=== PATIENT | female | born 1995 | race African-American/Black ===

== ENCOUNTER 2017-01-15 09:55 | Emergency (ER) | payer OTHER ==
[~2017-01-15] VITALS: Ht 160 cm; Wt 63.5 kg
[~2017-01-15 09:55] MED LIST: IBUP200T77 PO; ONDA4TAB10 SL; PRED50TA PO
[2017-01-15 12:00] VITALS: BP 116/61
[2017-01-15] MEDS ORDERED: ACET-704 PO (12:23)
--- NOTE | 2017-01-15 12:24 | PHYS DOC ---
Past Medical History Past Medical History: Other Additional Past Medical Histor: ulcers Past Surgical History: No Surgical History Additional Information: Nonsmoker Alcohol Use: Occasionally Drug Use: None Adult General Chief Complaint Chief Complaint: HAND PROBLEM HPI HPI Patient is a 21 year old female who presents with blisters on her hands and feet for 2 days. She also reports a few lesions on the right thigh and the right forearm. She denies any lesions in her mouth or fevers. The patient works at a daycare center. She had similar blisters in August of last year and was diagnosed with hand, foot, mouth disease. Her PCP is Dr. Sultana Garcia. She has an appointment with a chronometer assembler on Wednesday next week. Review of Systems Review of Systems Constitutional: Denies fever or chills. [] Eyes: Denies change in visual acuity, redness, or eye pain. [] HENT: Denies ear pain, nasal congestion or sore throat. Denies mouth sores. Musculoskeletal: Denies back pain or joint pain. [] Integument: Reports blisters on the hands, feet, right thigh, and right forearm. Allergies Allergies Allergies Coded Allergies Type Severity Reaction Last Updated Verified No Known Drug Allergies 10/03/16 No Physical Exam Physical Exam Constitutional: Well developed, well nourished, no acute distress, non-toxic appearance. [] HENT: Normocephalic, atraumatic, oropharynx moist. There is a subcentimeter erythematous blister on the left side of the hard palate. The patient denies any pain associated with this. Eyes: PERRLA, EOMI, conjunctiva normal, no discharge. [] Neck: Normal range of motion, no tenderness, supple, no stridor. [] Skin: Warm, dry, no erythema, no rash. There are blisters scattered on bilateral palms, bilateral soles of the feet, right thigh, and right forearm. Extremities: There is tenderness associated with the blisters only, ROM intact, no edema. Distal pulses equal bilaterally. [] Neurologic: Alert and oriented X 3, normal motor function, normal sensory function, no focal deficits noted. [] Psychologic: Affect normal, judgement normal, mood normal. [] EKG EKG [] Radiology/Procedures Radiology/Procedures [] Course & Med Decision Making Course & Med Decision Making Pertinent Labs and Imaging studies reviewed. (See chart for details) [] Dragon Disclaimer Dragon Disclaimer This electronic medical record was generated, in whole or in part, using a voice recognition dictation system. Departure Departure Impression: Primary Impression: Hand, foot, and mouth disease Disposition: HOME, SELF-CARE Condition: STABLE Referrals: NON,STAFF (PCP) Patient Instructions: Hand, Foot, and Mouth Disease, [id number] Additional Instructions: Your blisters appear to be due to hand, foot, mouth disease. This is a viral illness. Please take the prescribed pain medication as directed. Do not drive or operate heavy machinery while taking pain medication. Please follow-up with your chronometer assembler as previously scheduled. Return to the emergency department if you have any new or concerning symptoms. Scripts Acetaminophen With Codeine (Tylenol With Codeine #3 Tablet)1 Each Tablet1 Tab PO PRN Q6HRS PRN PAIN #20 TAB Prov:RAIMUNDO RODRIGUEZ 01/15/17 RAIMUNDO RODRIGUEZ Jan 15, 2017 12:24
== END 2017-01-15 12:50 | disposition home or self-care (01) ==
LOC: ER 09:55
DX: B08.4 Enteroviral vesicular stomatitis with exanthem (principal)
CPT/HCPCS: 99283

== ENCOUNTER 2019-09-06 12:02 | Emergency (ER) | payer BC, OTHER ==
[~2019-09-06] VITALS: Ht 160 cm; Wt 63.5 kg
[~2019-09-06 12:02] MED LIST changes: +ACET-704 PO
[2019-09-06 12:22] VITALS: BP 130/58
--- NOTE | 2019-09-06 12:58 | PHYS DOC ---
Past Medical History Past Medical History: Other Additional Past Medical Histor: ulcers Past Surgical History: No Surgical History Alcohol Use: Occasionally Drug Use: None Adult General Chief Complaint Chief Complaint: [facility] HPI Patient is a 23 year old AA female who presents to the emergency department with complaints of lacerations to her second and third digit of her left hand after a wine glass broke this morning. Patient states she went to urgent care and they cleaned out the cuts however the wait was 2 hours so she decided to leave. Patient states her last tetanus shot was approximately one year ago. She denies any numbness, tingling, weakness or decreased range of motion of the affected fingers. She currently complains of a throbbing pain that she rates a 6 out of 10 on pain scale she alleviating factors. States that the pain increases with movement of her fingers or touch. All other ROS is neg unless otherwise noted in HPI. Review of Systems Review of Systems See Above Allergies Allergies Allergies Coded Allergies Type Severity Reaction Last Updated Verified No Known Drug Allergies 10/03/16 No Physical Exam Physical Exam See Above Constitutional: Well developed, well nourished, no acute distress, non-toxic appearance. [] HENT: Normocephalic, atraumatic, bilateral external ears normal, nose normal. [] Eyes: PERRLA, EOMI, conjunctiva normal, no discharge. [] Neck: Normal range of motion, no stridor. [] Cardiovascular:Heart rate regular rhythm Lungs & Thorax: Respirations even and unlabored, no retractions, no respiratory distress Skin: Warm, dry, no erythema, no rash; superficial C-shaped laceration over left PIP on volar surface of the second digit without active bleeding 0.5 cm diameter; less than 2 mm skin avulsion over left PIP on volar surface of third d igit without active bleeding [] Extremities: No cyanosis, ROM intact, no edema. [] Neurologic: Alert and oriented X 3, no focal deficits noted. [] Psychologic: Affect normal, judgement normal, mood normal. [] Current Patient Data Vital Signs Vital Signs Date Time Temp Pulse Resp B/P (MAP) Pulse Ox O2 Delivery O2 Flow Rate FiO2 09/06/19 12:22 98.3 74 18 130/58 (82) 98 Room Air 98.3 EKG EKG [] Radiology/Procedures Radiology/Procedures [] Course & Med Decision Making Course & Med Decision Making Pertinent Labs and Imaging studies reviewed. (See chart for details) Patient is a 23-year-old female who presented for evaluation of an avulsion of her left third finger, and a superficial laceration to her left second finger. Neither injury required suturing. The second finger laceration was closed with Steri-Strips by nursing staff, and a dressing was applied over the third finger. PT is to follow up with her primary care doctor as needed, return to ER if signs of infection develop. Patient was up-to-date on her tetanus shot. She may take Tylenol or ibuprofen as needed for pain The patient verbalized an understanding of home care, medications, follow-up, and return to ED instructions and was in agreement with the plan of care. [] Dragon Disclaimer Dragon Disclaimer This electronic medical record was generated, in whole or in part, using a voice recognition dictation system. Departure Departure Impression: Primary Impression: Avulsion of skin of finger Additional Impression: Laceration of finger of left hand without foreign body without damage to nail Disposition: 01 HOME, SELF-CARE Condition: STABLE Referrals: UNKNOWN PCP NAME (PCP) Patient Instructions: Laceration Care, Adult, [id number] Additional Instructions: Keep the affected areas clean and dry. You may take Tylenol or ibuprofen as needed for pain. Keep the dressing that was placed today on for 24 hours then change the dressing twice a day and apply antibiotic ointment to the area. Follow-up with your primary care doctor as needed. Return to the ER if you develop signs of infection including: redness, warmth, drainage, or a fever. Problem Qualifiers Primary Impression: Avulsion of skin of finger Encounter type: initial encounter Qualified Codes: S61.209A - Unspecified open wound of unspecified finger without damage to nail, initial encounter Additional Impression: Laceration of finger of left hand without foreign body without damage to nail Encounter type: initial encounter Finger: index finger Qualified Codes: S61.211A - Laceration without foreign body of left index finger without damage to nail, initial encounter HILDA [employer]IST Sep 06, 2019 12:58
[2019-09-06] MEDS ORDERED: NEOMY/BACITR/POLYMYXIN OINT PACKET. TP ONE (13:00)
== END 2019-09-06 13:08 | disposition home or self-care (01) ==
LOC: ER 12:02
DX: S61.211A Laceration without foreign body of left index finger without damage to nail, initial encounter (principal); S61.203A Unspecified open wound of left middle finger without damage to nail, initial encounter; W25.XXXA Contact with sharp glass, initial encounter; Y93.89 Activity, other specified; Y92.89 Other specified places as the place of occurrence of the external cause; Y99.8 Other external cause status
CPT/HCPCS: 99282

== ENCOUNTER 2020-08-04 07:17 | Emergency (ER) | payer BC ==
[~2020-08-04] VITALS: Ht 160 cm; Wt 167.0 kg
[2020-08-04 07:37] VITALS: BP 117/65
== END 2020-08-04 08:12 | disposition left against medical advice (07) ==
LOC: ER 07:17
DX: R10.9 Unspecified abdominal pain (principal); Z53.21 Procedure and treatment not carried out due to patient leaving prior to being seen by health care provider